=== PATIENT | male | born 1975 | race African-American/Black ===

== ENCOUNTER 2018-03-04 21:30 | Inpatient (IN) | payer OTHER, MEDICAID, MEDICARE ==
[~2018-03-04] VITALS: Ht 177.8 cm; Wt 80.5 kg
[2018-03-04 21:29] VITALS: O2SAT 99
[2018-03-04] MEDS ORDERED: IOHEXOL 350 MG/ML 10 ML VIAL (for RAD DIAG) IVCONTRAST ONE (21:31)
[2018-03-04] MEDS ORDERED: ceFAZolin 2 GM PREMIX 50 ML ONE (21:43)
[2018-03-04] MEDS ORDERED: DIPHTH/TETANUS/ACEL PERTUSSIS (BOOSTER) 0.5 ML VIAL/PFS IM ONE (21:43)
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
[2018-03-04 21:56] LABS: AUTOMATED NEUTROPHIL # 6.3 TH/MM3 (1.8-7.7); BASOPHIL # 0.1 TH/MM3 (0-0.2); BASOPHIL % 0.7 % (0.0-2.0); EOSINOPHIL # 0.5 TH/MM3 (0-0.4); EOSINOPHIL % 4.7 % (0.0-4.0); HEMATOCRIT 38.9 % (39.0-51.0); HEMOGLOBIN 13.4 GM/DL (13.0-17.0); LYMPH % 26.5 % (9.0-44.0); LYMPHOCYTE # 2.7 TH/MM3 (1.0-4.8); MEAN CELL VOLUME 84.3 FL (80.0-100.0); MEAN CORPUSCULAR HEMOGLOBIN 29.1 PG (27.0-34.0); MEAN CORPUSCULAR HGB CONC 34.5 % (32.0-36.0); MEAN PLATELET VOLUME 9.1 FL (7.0-11.0); MONO % 5.7 % (0.0-8.0); MONOCYTE # 0.6 TH/MM3 (0-0.9); NEUT % 62.4 % (16.0-70.0); PLATELET COUNT 290 TH/MM3 (150-450); RED BLOOD COUNT 4.62 MIL/MM3 (4.50-5.90); RED CELL DISTRIBUTION WIDTH 13.8 % (11.6-17.2); WHITE BLOOD COUNT 10.1 TH/MM3 (4.0-11.0)
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
[2018-03-04 22:15] LABS: PROTHROMBIN TIME - PATIENT 9.8 SEC (9.8-11.6)
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
[2018-03-04 23:35] LABS: TOTAL BILIRUBIN ADULT 0.8 MG/DL (0.2-1.0)
[2018-03-04 23:36] LABS: ALBUMIN 3.4 GM/DL (3.4-5.0); DIRECT BILIRUBIN ADULT 0.2 MG/DL (0.0-0.2); INDIRECT BILIRUBIN 0.6 MG/DL (0.0-0.8); TOTAL PROTEIN 6.7 GM/DL (6.4-8.2)
[2018-03-05] MEDS ORDERED: LORazepam 2 MG/ML VIAL IM STA (09:56)
[2018-03-05] MEDS: NICOTINE 21 MG/24 HR PATCH T-DERMAL SCH (10:00)
[2018-03-05] MEDS ORDERED: LORazepam 2 MG/ML VIAL IM PRN ×2 (10:00)
[2018-03-05] MEDS ORDERED: MAGNESIUM HYDROXIDE SUSP 30 ML CUP PO PRN (10:00)
[2018-03-05] MEDS ORDERED: HALOPERIDOL LACTATE 5 MG/ML AMP IM ONE (10:00)
[2018-03-05] MEDS ORDERED: ALUMINUM/MAGNESIUM/SIMETH 30 ML CUP PO PRN (10:00)
[2018-03-05] MEDS ORDERED: LORazepam 0.5 MG TAB PO PRN (10:00)
[2018-03-05 10:20] VITALS: BP 122/86; PULSE 77; RESP 18; TEMP 97.8; O2SAT 98
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
[2018-03-05] MEDS: OLANZapine 2.5 MG TAB PO SCH (20:59)
[2018-03-05] MEDS: REMOVE OLD NICODERM (NICOTINE) PATCH T-DERMAL SCH (21:00)
[2018-03-06 06:19] VITALS: BP 93/52; PULSE 67; RESP 18; TEMP 98.3; O2SAT 98
[2018-03-06] MEDS: OLANZapine 2.5 MG TAB PO SCH (09:00)
[2018-03-06] MEDS: NICOTINE 21 MG/24 HR PATCH T-DERMAL SCH (09:00)
[2018-03-06] MEDS: ACETAMINOPHEN 325 MG TAB PO PRN ×2 (11:04→20:40)
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
[2018-03-06] MEDS ORDERED: OLANZapine IM 10 MG VIAL IM ONE (14:51)
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
[2018-03-06 17:00] VITALS: BP 108/55; PULSE 77; RESP 18; TEMP 97.8; O2SAT 99
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
[2018-03-06] MEDS: LORazepam 1 MG TAB PO PRN (20:40)
[2018-03-06] MEDS: OLANZapine 5 MG TAB PO SCH (20:40)
[2018-03-06] MEDS: REMOVE OLD NICODERM (NICOTINE) PATCH T-DERMAL SCH (21:00)
[2018-03-07] MEDS: ACETAMINOPHEN 325 MG TAB PO PRN (05:04)
[2018-03-07 06:13] VITALS: BP 121/62; PULSE 95; RESP 18; TEMP 97.8; O2SAT 96
[2018-03-07] MEDS: OLANZapine 5 MG TAB PO SCH ×2 (08:01→20:10)
[2018-03-07] MEDS: NICOTINE 21 MG/24 HR PATCH T-DERMAL SCH (08:01)
[2018-03-07] MEDS: REMOVE OLD NICODERM (NICOTINE) PATCH T-DERMAL SCH (08:02)
[2018-03-07] MEDS: LORazepam 1 MG TAB PO PRN ×3 (09:36→20:10)
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
[2018-03-07 18:27] VITALS: BP 113/60; PULSE 90; RESP 16; TEMP 98.3; O2SAT 100
[2018-03-07] MEDS: diphenhydrAMINE HCL 50 MG CAP PO SCH (20:10)
[2018-03-08 06:12] VITALS: BP 108/56; PULSE 108; RESP 18; TEMP 97.7; O2SAT 99
[2018-03-08] MEDS: ACETAMINOPHEN 325 MG TAB PO PRN ×2 (06:31→22:52)
[2018-03-08] MEDS: LORazepam 1 MG TAB PO PRN ×3 (07:07→18:04)
[2018-03-08] MEDS: OLANZapine 5 MG TAB PO SCH ×2 (07:35→20:26)
[2018-03-08] MEDS: NICOTINE 21 MG/24 HR PATCH T-DERMAL SCH (07:36)
--- NOTE | 2018-03-08 17:40 | HHI.PYPN ---
Subjective Remarks Patient seen for follow-up, chart reviewed. Discussion nursing staff reported the patient a compliant medications, cooperative, refused to remove neck brace. Patient was found family on unit noted B, cooperative. Patient states that he has continued discomfort and pain in his neck but had refused to allow examination stating that he would much rather wait until he arrives to [place] to have someone take a look at it. Patient reports sleeping well, good appetite, mood being "pretty good". Patient spoke with best friend states that he plans on returning back to [place] and engaged with the [employer] in [place]. Patient denies any SI, HI, AVH or delusions. Review of Systems Except as stated in HPI: all other systems reviewed are Neg Mental Status Examination Appearance: Dirty, Disheveled, Other (wearing neck collar) Consciousness: Alert Orientation: x4 Motor Activity: Normal gait Speech: Unremarkable Language: Adequate Fund of Knowledge: Adequate Attention and Concentration: Adequate Memory: Unremarkable Mood: Appropriate Affect: Appropriate Thought Process & Associations: Loose associations, Disorganized Thought Content: Appropriate, Bizarre thinking, Delusional Hallucination Type: None Delusion Type: Bizarre, Paranoid, Somatic Suicidal Ideation: No Suicidal Plan: No Suicidal Intention: No Homicidal Ideation: No Homicidal Plan: No Homicidal Intention: No Insight: Poor Judgment: Poor Results Vitals/IOs Vital Signs Date Time Temp Pulse Resp B/P (MAP) Pulse Ox O2 Delivery O2 Flow Rate FiO2 03/08/18 06:12 97.7 108 18 108/56 (73) 99 03/04/18 21:29 21 Assessment & Plan Problem List: (1) Schizophrenia ICD Codes: F20.9 - Schizophrenia, unspecified Assessment & Plan Patient this time continues to refuse to allow examination of neck although has been noted to have taking off the brace to shave without any limitation or difficulty with range of motion as observed by nursing staff. We will continue current treatment. Continue monitor mood and behavior. Discharge planning in progress. Justification for Cont. Inpt. At risk of further decompensation at lower level of care. Discharge Planning Patient will return back to [place] Salbador Vazquez MD March 08, 2018 17:40
[2018-03-08 17:55] VITALS: BP 109/57; PULSE 103; RESP 17; TEMP 98.1; O2SAT 100
[2018-03-08] MEDS: diphenhydrAMINE HCL 50 MG CAP PO SCH (20:26)
[2018-03-08] MEDS: REMOVE OLD NICODERM (NICOTINE) PATCH T-DERMAL SCH (21:00)
[2018-03-09] MEDS: ACETAMINOPHEN 325 MG TAB PO PRN ×2 (04:56→09:28)
[2018-03-09 06:00] VITALS: BP 125/75; PULSE 87; RESP 18; TEMP 98.1; O2SAT 98
[2018-03-09] MEDS: LORazepam 1 MG TAB PO PRN ×3 (08:45→20:59)
[2018-03-09] MEDS: OLANZapine 5 MG TAB PO SCH ×2 (08:45→20:20)
[2018-03-09] MEDS: NICOTINE 21 MG/24 HR PATCH T-DERMAL SCH (08:45)
--- NOTE | 2018-03-09 13:34 | HHI.PYPN ---
Subjective Remarks Patient was seen and case discussed with nursing. Patient is oppositional and sarcastic. He was asked multiple times not to touch or hug other patients. He finds this comical and purposely touches patient's more. He is fixated that he is leaving on Sunday and thus can test is limits on the unit. Mental Status Examination Appearance: Dirty, Disheveled, Other (wearing neck collar) Consciousness: Alert Orientation: x4 Motor Activity: Normal gait Speech: Unremarkable Language: Adequate Fund of Knowledge: Adequate Attention and Concentration: Adequate Memory: Unremarkable Mood: Appropriate Affect: Irritable, Labile Thought Process & Associations: Loose associations, Disorganized Thought Content: Appropriate, Bizarre thinking, Delusional Hallucination Type: None Delusion Type: Bizarre, Paranoid, Somatic Suicidal Ideation: No Suicidal Plan: No Suicidal Intention: No Homicidal Ideation: No Homicidal Plan: No Homicidal Intention: No Insight: Poor Judgment: Poor Results Vitals/IOs Vital Signs Date Time Temp Pulse Resp B/P (MAP) Pulse Ox O2 Delivery O2 Flow Rate FiO2 03/09/18 06:00 98.1 87 18 125/75 (92) 98 Assessment & Plan Problem List: (1) Schizophrenia ICD Codes: F20.9 - Schizophrenia, unspecified Assessment & Plan Continue current treatment plan Justification for Cont. Inpt. Patient would decompensate in a less restrictive setting Hardeep Cordero DO March 09, 2018 13:34
[2018-03-09 18:46] VITALS: BP 122/95; PULSE 96; RESP 19; TEMP 97.3; O2SAT 100
[2018-03-09] MEDS: diphenhydrAMINE HCL 50 MG CAP PO SCH (20:20)
[2018-03-09] MEDS: REMOVE OLD NICODERM (NICOTINE) PATCH T-DERMAL SCH (20:23)
[2018-03-10] MEDS: LORazepam 1 MG TAB PO PRN ×2 (04:19→16:59)
[2018-03-10] MEDS: ACETAMINOPHEN 325 MG TAB PO PRN ×3 (04:20→17:00)
[2018-03-10 05:38] VITALS: BP 126/65; PULSE 85; RESP 18; TEMP 98.1; O2SAT 99
[2018-03-10] MEDS: OLANZapine 5 MG TAB PO SCH ×2 (09:07→21:32)
[2018-03-10] MEDS: NICOTINE 21 MG/24 HR PATCH T-DERMAL SCH (09:07)
--- NOTE | 2018-03-10 13:45 | HHI.PYPN ---
Subjective Remarks Patient was seen and case discussed with nursing. Patient continues to be manipulative during his stay. Per nursing, he tried to fall twice for the text last night. Did not actually have any falls. During my interview he is focused on discharge and is extremely pleasant. Compliant with his medications. He is able to keep his distance from other patients today Mental Status Examination Appearance: Dirty, Disheveled, Other (wearing neck collar) Consciousness: Alert Orientation: x4 Motor Activity: Normal gait Speech: Unremarkable Language: Adequate Fund of Knowledge: Adequate Attention and Concentration: Adequate Memory: Unremarkable Mood: Appropriate Affect: Irritable, Labile Thought Process & Associations: Loose associations, Disorganized Thought Content: Appropriate, Bizarre thinking, Delusional Hallucination Type: None Delusion Type: Bizarre, Paranoid, Somatic Suicidal Ideation: No Suicidal Plan: No Suicidal Intention: No Homicidal Ideation: No Homicidal Plan: No Homicidal Intention: No Insight: Poor Judgment: Poor Results Vitals/IOs Vital Signs Date Time Temp Pulse Resp B/P (MAP) Pulse Ox O2 Delivery O2 Flow Rate FiO2 03/10/18 05:38 98.1 85 18 126/65 (85) 99 Assessment & Plan Problem List: (1) Schizophrenia ICD Codes: F20.9 - Schizophrenia, unspecified Assessment & Plan Continue current treatment plan Justification for Cont. Inpt. Patient would decompensate in a less restrictive setting Hardeep Cordero DO March 10, 2018 13:45
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
[2018-03-10] MEDS ORDERED: traMADol HCL 50 MG TAB PO PRN (16:15)
[2018-03-10] MEDS: REMOVE OLD NICODERM (NICOTINE) PATCH T-DERMAL SCH (21:00)
[2018-03-10] MEDS: diphenhydrAMINE HCL 50 MG CAP PO SCH (21:32)
[2018-03-11] MEDS: LORazepam 1 MG TAB PO PRN (05:23)
[2018-03-11 06:29] VITALS: BP 102/61; PULSE 96; RESP 18; TEMP 97; O2SAT 98
[2018-03-11] MEDS: NICOTINE 21 MG/24 HR PATCH T-DERMAL SCH (08:35)
[2018-03-11] MEDS: OLANZapine 5 MG TAB PO SCH (08:35)
[2018-03-11] MEDS ORDERED: LIDOCAINE HCL 5% PATCH T-DERMAL SCH (09:00)
[2018-03-11] MEDS ORDERED: OLAN5TAB PO (09:38)
[2018-03-11] MEDS ORDERED: DIPH50CA PO (09:40)
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
[2018-03-11 09:53] LABS: BICARBONATE 28.3 MEQ/L (21.0-32.0); CALCIUM 9.2 MG/DL (8.5-10.1)
== END 2018-03-11 11:45 | disposition home or self-care (01) | DRG 885 ==
LOC: NEPI 21:30 → NEDA 03-05 09:51 → EDBD 03-05 09:51 → H270 03-05 10:20
PROVIDERS: ADMIT Student in an Organized Health Care Education/Training Program; ATTEND Student in an Organized Health Care Education/Training Program
DX: F20.0 Paranoid schizophrenia (principal); I10 Essential (primary) hypertension; F31.9 Bipolar disorder, unspecified; F90.9 Attention-deficit hyperactivity disorder, unspecified type; Z91.5 Personal history of self-harm; F17.210 Nicotine dependence, cigarettes, uncomplicated; M54.2 Cervicalgia; M43.16 Spondylolisthesis, lumbar region; M51.36 Other intervertebral disc degeneration, lumbar region; M54.5 Low back pain; G47.9 Sleep disorder, unspecified; Z88.6 Allergy status to analgesic agent; R40.2410 Glasgow coma scale score 13-15, unspecified time
CPT/HCPCS: 70450; 71045; 71260; 72125; 72129; 72132; 72170; 74177; 80048; 80076; 80307; 84443; 85025; 85384; 85610; 85730; 86850; 86900; 86901; 90471; 90715; 96365; 96366; 99291; G0390; J0690; J1630; J2060; Q0163; Q9967